=== PATIENT | male | born 1980 | race African-American/Black ===

== ENCOUNTER 2023-06-10 22:41 | Emergency (ER) | payer SELFPAY ==
[~2023-06-10] VITALS: Ht 177.8 cm; Wt 75.0 kg
[2023-06-10 22:49] VITALS: BP 132/65; PULSE 102; RESP 16; TEMP 98.5; O2SAT 99
== END 2023-06-11 01:37 ==
LOC: ER 22:48
DX: S00.83XA Contusion of other part of head, initial encounter (principal); F19.90 Other psychoactive substance use, unspecified, uncomplicated; V98.8XXA Other specified transport accidents, initial encounter; Y93.89 Activity, other specified; Y92.89 Other specified places as the place of occurrence of the external cause; Y99.8 Other external cause status
CPT/HCPCS: 70486; 99284